=== PATIENT | female | born 1940 | race Caucasian/White ===

== ENCOUNTER → 2016-09-21 | Outpatient (CLI) | payer MEDICARE, OTHER ==
[~2016-09-21] VITALS: Ht 149.9 cm; Wt 87.5 kg
[~2016-09-21] MED LIST: CELE200 PO; CHLO375T PO; FLUO-191 PO; HYDR25TA PO; LORA10TA7 PO; MEMA10TA11 PO; OLME40 PO
[2016-09-21 13:37] VITALS: BP 131/51
== END | disposition home or self-care (01) ==
LOC: EDBD 13:00 → SRCNTR 13:22
PROVIDERS: ATTEND Internal Medicine Critical Care Medicine
DX: G47.33 Obstructive sleep apnea (adult) (pediatric) (principal); I10 Essential (primary) hypertension; F03.90 Unspecified dementia, unspecified severity, without behavioral disturbance, psychotic disturbance, mood disturbance, and anxiety; J45.909 Unspecified asthma, uncomplicated; Z90.49 Acquired absence of other specified parts of digestive tract
CPT/HCPCS: G0463

== ENCOUNTER → 2016-10-18 | Outpatient (CLI) | payer MEDICARE, OTHER ==
[~2016-10-18] MED LIST changes: -CELE200 PO; -CHLO375T PO; -FLUO-191 PO; -LORA10TA7 PO
== END | disposition home or self-care (01) ==
LOC: RESP 11:55
PROVIDERS: ATTEND Internal Medicine Critical Care Medicine
DX: J45.909 Unspecified asthma, uncomplicated (principal); R05 Cough
CPT/HCPCS: 94010; 94726; 94727; 94729